=== PATIENT | female | born 1990 | race American Indian/Alaskan Native ===

== ENCOUNTER 2022-05-24 17:36 | Inpatient (IN) | payer OTHER ==
[~2022-05-24] VITALS: Ht 160 cm; Wt 104.8 kg
[2022-05-24] MEDS ORDERED: LIDOCAINE HCL 1% 20ML VIAL (Pyxis) INJ INFIL NR (18:45)
[2022-05-24] MEDS ORDERED: BUTORPHANOL TARTRATE 2 MG/ML VIAL IV PRN (18:45)
[2022-05-24] MEDS ORDERED: RHO(D) IMMUNE GLOBULIN 300 MCG/SYR IM NR (18:45)
[2022-05-24 18:59] LABS: BASOPHILS % 0.2 % (0.0-2.0); EOSINOPHILS % 0.1 % (0.0-5.0); HEMATOCRIT. 39.1 % (36.0-48.0); LYMPHOCYTES % 13.2 % (20.0-50.0); MEAN CORPUSCULAR HEMOGLOBIN 28.7 pg (28.0-32.0); MEAN CORPUSCULAR VOLUME 86.3 fL (81.0-99.0); MEAN PLATELET VOLUME 10.6 fl (7.4-10.4); MONOCYTES % 4.5 % (2.0-8.0); PLATELET 159 x1000/uL (130-400); RED BLOOD CELL COUNT 4.54 mill/uL (4.2-5.4); RED CELL DISTRIBUTION WIDTH 14.3 % (11.6-14.6)
[2022-05-24 19:00] LABS: CLARITY URINE TURBID (CLEAR); COLOR URINE YELLOW (YELLOW); KETONES URINE NEGATIVE (NEGATIVE); LEUKOCYTE ESTERASE URINE 3+ (NEGATIVE); NITRITE URINE NEGATIVE (NEGATIVE); OCCULT BLOOD URINE NEGATIVE (NEGATIVE); PROTEIN URINE 2+ (NEGATIVE); SPECIFIC GRAVITY URINE 1.015 (1.005-1.030); UROBILINOGEN URINE 0.2 E.U./dL (0.2-1.0)
[2022-05-24] MEDS ORDERED: PENICILLIN G POTASSIUM 5 MMU in DEXT 5% WATER 100 ML IV SCH (19:00)
[2022-05-24 19:06] LABS: CHLORIDE 103 mEq/L (98-107)
[2022-05-24 19:11] LABS: *AMPHETAMINES SCREEN URINE NEGATIVE (NEGATIVE); *BARBITURATES SCREEN URINE NEGATIVE (NEGATIVE); *BENZODIAZEPINES SCREEN URINE NEGATIVE (NEGATIVE); *COCAINE SCREEN URINE NEGATIVE (NEGATIVE); CANNABINOID URINE SCREEN NEGATIVE (NEGATIVE); METHADONE URINE SCREEN NEGATIVE (NEGATIVE); OPIATES URINE SCREEN NEGATIVE (NEGATIVE); PHENCYCLIDINE URINE SCREEN NEGATIVE (NEGATIVE)
[2022-05-24] MEDS: LACTATED RINGERS 1,000 ML IV SCH ×2 (19:29→22:36)
[2022-05-24 19:59] LABS: D-DIMER 0.99 mg/L FEU (<0.50); PARTIAL THROMBOPLASTIN TIME 28.4 sec (23.4-31.0); PROTHROMBIN TIME 10.3 sec (9.6-11.0)
[2022-05-24] MEDS ORDERED: POTASSIUM CHLORIDE 20MEQ TABLET SR PO NR (20:00)
[2022-05-24] MEDS: LABETALOL HCL 200MG TABLET PO SCH (20:12)
[2022-05-24 20:35] LABS: HEPATITIS B SURFACE ANTIGEN NEGATIVE
[2022-05-24] MEDS ORDERED: DEXTROSE 50% WATER 50ML SYRINGE IV PRN (23:00)
[2022-05-24] MEDS ORDERED: PENICILLIN G POTASSIUM 2.5 MMU in DEXTROSE 5% WATER 50 ML IV SCH (23:00)
[2022-05-25] MEDS ORDERED: PREN1TAB78 PO (07:11)
[2022-05-25] MEDS ORDERED: NIFE-32 PO (07:11)
[2022-05-25] MEDS ORDERED: MV-M1TAB19 PO (07:11)
[2022-05-25] MEDS ORDERED: [UNRECOGNIZED DRUG - CODE] PO (07:11)
[2022-05-25] MEDS: LACTATED RINGERS 1,000 ML IV SCH (07:41)
[2022-05-25] MEDS: LABETALOL HCL 200MG TABLET PO SCH (07:44)
[2022-05-25] MEDS ORDERED: LACTATED RINGERS IV SCH (08:00)
[2022-05-25] MEDS ORDERED: KCL 20MEQ/100ML PREMIX 100 ML IV NR (08:00)
[2022-05-25] MEDS ORDERED: POTASSIUM ACETATE IV SCH (08:00)
[2022-05-25] MEDS ORDERED: POTASSIUM CHLORIDE INJ 20 MEQ in LACTATED RINGERS 1,000 ML IV SCH (09:00)
[2022-05-25] MEDS: LABETALOL HCL 100MG TABLET PO NR ×2 (18:10→21:20)
[2022-05-25] MEDS ORDERED: DEXT 5%/LR + PITOCIN 20UNITS/L 1,000 ML IV SCH (23:45)
[2022-05-26] MEDS: LACTATED RINGERS 1,000 ML IV SCH ×2 (00:24→10:40)
[2022-05-26] MEDS: OXYTOCIN 30 UNITS/500ML NS PMX 500 ML IV SCH ×2 (00:27→13:42)
[2022-05-26] MEDS ORDERED: LABETALOL HCL 5MG/ML VIAL 20ML IV PRN ×3 (01:00)
[2022-05-26] MEDS ORDERED: HYDRALAZINE 20MG/ML VIAL IV PRN (01:00)
[2022-05-26 01:30] LABS: BASOPHILS % 0.7 % (0.0-2.0); EOSINOPHILS % 1.2 % (0.0-5.0); HEMATOCRIT. 35.8 % (36.0-48.0); HEMOGLOBIN. 12.1 g/dL (12.0-16.0); LYMPHOCYTES % 19.7 % (20.0-50.0); MEAN CORPUSCULAR HEMOGLOBIN 28.8 pg (28.0-32.0); MEAN CORPUSCULAR VOLUME 85.3 fL (81.0-99.0); MEAN PLATELET VOLUME 10.9 fl (7.4-10.4); MONOCYTES % 6.5 % (2.0-8.0); NEUTROPHILS % 71.9 % (40.0-76.0); PLATELET 120 x1000/uL (130-400); RED CELL DISTRIBUTION WIDTH 14.3 % (11.6-14.6)
[2022-05-26 01:38] LABS: CHLORIDE 106 mEq/L (98-107)
[2022-05-26] MEDS ORDERED: ROPIVACAINE HCL/PF EPIDURAL 200 ML EPI ONE (02:44)
[2022-05-26] MEDS ORDERED: ROPIVACAINE HCL/PF EPIDURAL 200 ML EPI SCH (02:45)
[2022-05-26] MEDS: LABETALOL HCL 200MG TABLET PO SCH ×3 (08:07→21:18)
[2022-05-26] MEDS ORDERED: LIDOCAINE HCL 1% 20ML VIAL (Pyxis) INJ INFIL NR (10:15)
[2022-05-26] MEDS ORDERED: BISACODYL 10MG SUPP PR PRN (14:15)
[2022-05-26] MEDS ORDERED: ACETAMINOPHEN WITH CODEINE 300/30MG TABLET PO PRN (14:15)
[2022-05-26] MEDS ORDERED: BENZOCAINE/LANOLIN/ALOE VERA SPRAY TOP PRN (14:15)
[2022-05-26] MEDS ORDERED: HEMORRHOIDAL SUPP PR PRN (14:15)
[2022-05-26] MEDS ORDERED: LANOLIN OINT 7GM TUBE TOP PRN (14:15)
[2022-05-26] MEDS ORDERED: DIPHENHYDRAMINE 25MG CAPSULE PO PRN (14:15)
[2022-05-26] MEDS ORDERED: RHO(D) IMMUNE GLOBULIN 300 MCG/SYR IM PRN (14:15)
[2022-05-26] MEDS ORDERED: IBUPROFEN 400MG TABLET PO PRN (14:15)
[2022-05-26] MEDS ORDERED: GLYCERIN/WITCH HAZEL LEAF MEDICATED PAD TOP PRN (14:15)
[2022-05-26] MEDS ORDERED: OXYTOCIN 30 UNITS/500ML NS PMX 500 ML IV SCH (14:15)
[2022-05-26 15:10] VITALS: BP 145/90
[2022-05-26 18:00] VITALS: BP 137/93
[2022-05-26 20:00] VITALS: BP 137/80
[2022-05-26] MEDS: DOCUSATE SODIUM 100MG CAPSULE PO SCH (21:14)
[2022-05-26] MEDS: SIMETHICONE 80MG TABLET CHEW PO SCH (21:14)
[2022-05-26] MEDS: MAGNESIUM/ALUMINUM HYDROXIDE/SIMETHICONE 30ML UDC PO SCH (21:14)
[2022-05-27 03:30] VITALS: BP 113/69
[2022-05-27 05:28] LABS: CHLORIDE 108 mEq/L (98-107)
[2022-05-27] MEDS: LABETALOL HCL 200MG TABLET PO SCH ×3 (05:50→23:49)
[2022-05-27 06:26] LABS: BASOPHILS % 0.1 % (0.0-2.0); EOSINOPHILS % 0.2 % (0.0-5.0); HEMATOCRIT. 25.4 % (36.0-48.0); HEMOGLOBIN. 8.4 g/dL (12.0-16.0); MEAN CORPUSCULAR VOLUME 87.2 fL (81.0-99.0); MEAN PLATELET VOLUME 10.5 fl (7.4-10.4); MONOCYTES % 6.9 % (2.0-8.0); NEUTROPHILS % 80.8 % (40.0-76.0); PLATELET 139 x1000/uL (130-400); RED BLOOD CELL COUNT 2.91 mill/uL (4.2-5.4); RED CELL DISTRIBUTION WIDTH 13.8 % (11.6-14.6)
[2022-05-27 08:00] VITALS: BP 124/76
[2022-05-27] MEDS: MAGNESIUM/ALUMINUM HYDROXIDE/SIMETHICONE 30ML UDC PO SCH ×3 (08:36→20:44)
[2022-05-27] MEDS: PRENATAL VIT/FE FUMARATE/FA TABLET PO SCH (08:36)
[2022-05-27] MEDS: FERROUS SULFATE 325MG TABLET PO SCH ×3 (08:37→20:52)
[2022-05-27] MEDS: SIMETHICONE 80MG TABLET CHEW PO SCH ×3 (08:37→20:43)
[2022-05-27] MEDS: BLOOD SUGAR DIAGNOSTIC STRIP TEST SCH ×3 (12:00→20:55)
[2022-05-27] MEDS: INSULIN LISPRO 100 UNITS/ML SUBCUT SCH ×2 (12:30→17:30)
[2022-05-27 16:00] VITALS: BP 150/88
[2022-05-27] MEDS ORDERED: NALOXONE HCL 0.4MG/ML VIAL IV PRN (16:15)
[2022-05-27 19:30] VITALS: BP 137/79
[2022-05-27] MEDS: DOCUSATE SODIUM 100MG CAPSULE PO SCH (20:43)
[2022-05-27 22:00] VITALS: BP 152/90
[2022-05-28] MEDS: LABETALOL HCL 200MG TABLET PO SCH ×3 (00:30→16:45)
[2022-05-28 03:45] VITALS: BP 135/85
[2022-05-28 06:26] LABS: BASOPHILS % 0.2 % (0.0-2.0); EOSINOPHILS % 0.4 % (0.0-5.0); HEMOGLOBIN. 7.9 g/dL (12.0-16.0); LYMPHOCYTES % 12.7 % (20.0-50.0); MEAN CORPUSCULAR VOLUME 87.8 fL (81.0-99.0); MEAN PLATELET VOLUME 10.3 fl (7.4-10.4); MONOCYTES % 7.6 % (2.0-8.0); NEUTROPHILS % 79.1 % (40.0-76.0); PLATELET 149 x1000/uL (130-400); RED BLOOD CELL COUNT 2.74 mill/uL (4.2-5.4); RED CELL DISTRIBUTION WIDTH 14.2 % (11.6-14.6)
[2022-05-28] MEDS ORDERED: IBUP-2030 PO (07:40)
[2022-05-28] MEDS ORDERED: FERR-63 PO (07:40)
[2022-05-28] MEDS ORDERED: LABE200T9 PO (07:40)
[2022-05-28 08:00] VITALS: BP 155/100
[2022-05-28] MEDS: MAGNESIUM/ALUMINUM HYDROXIDE/SIMETHICONE 30ML UDC PO SCH ×3 (08:32→20:14)
[2022-05-28] MEDS: SIMETHICONE 80MG TABLET CHEW PO SCH ×3 (08:32→20:15)
[2022-05-28] MEDS: PRENATAL VIT/FE FUMARATE/FA TABLET PO SCH (08:32)
[2022-05-28] MEDS: FERROUS SULFATE 325MG TABLET PO SCH ×2 (08:32→16:45)
[2022-05-28 09:55] LABS: CHLORIDE 107 mEq/L (98-107)
[2022-05-28 10:20] VITALS: BP 151/99
[2022-05-28 14:00] VITALS: BP 145/82
[2022-05-28 16:00] VITALS: BP 152/91
[2022-05-28] MEDS: BLOOD SUGAR DIAGNOSTIC STRIP TEST SCH (17:00)
[2022-05-28] MEDS: INSULIN LISPRO 100 UNITS/ML SUBCUT SCH (17:06)
[2022-05-28 19:30] VITALS: BP 150/91
[2022-05-28] MEDS: NIFEDIPINE XL 30MG TAB PO SCH (20:15)
[2022-05-28] MEDS: DOCUSATE SODIUM 100MG CAPSULE PO SCH (20:23)
[2022-05-29] VITALS: BP 150/90
[2022-05-29 04:00] VITALS: BP 139/88
[2022-05-29] MEDS ORDERED: NIFE-33 PO (05:46)
[2022-05-29 08:00] VITALS: BP 148/92
[2022-05-29] MEDS: SIMETHICONE 80MG TABLET CHEW PO SCH (08:00)
[2022-05-29] MEDS: NIFEDIPINE XL 30MG TAB PO SCH (09:15)
[2022-05-29] MEDS: PRENATAL VIT/FE FUMARATE/FA TABLET PO SCH (09:16)
[2022-05-29] MEDS: LABETALOL HCL 200MG TABLET PO SCH ×3 (09:16→21:33)
[2022-05-29] MEDS: MAGNESIUM/ALUMINUM HYDROXIDE/SIMETHICONE 30ML UDC PO SCH ×2 (09:16→12:30)
[2022-05-29] MEDS: FERROUS SULFATE 325MG TABLET PO SCH ×3 (09:16→17:14)
[2022-05-29 12:00] VITALS: BP 143/93
[2022-05-29] MEDS: IBUPROFEN 800MG TABLET PO PRN (13:06)
[2022-05-29 16:00] VITALS: BP 141/92
[2022-05-29] MEDS: DOCUSATE SODIUM 100MG CAPSULE PO SCH (21:00)
[2022-05-29 21:46] VITALS: BP 136/94
[2022-05-30] MEDS: IBUPROFEN 800MG TABLET PO PRN ×2 (05:30→22:45)
[2022-05-30 06:18] VITALS: BP 137/82
[2022-05-30 09:00] VITALS: BP 139/90
[2022-05-30] MEDS: NIFEDIPINE XL 30MG TAB PO SCH (10:01)
[2022-05-30 16:00] VITALS: BP 160/102
[2022-05-30] MEDS: LABETALOL HCL 200MG TABLET PO SCH (16:22)
[2022-05-30 22:00] VITALS: BP 146/102
[2022-05-30] MEDS: MAGNESIUM/ALUMINUM HYDROXIDE/SIMETHICONE 30ML UDC PO SCH (22:45)
[2022-05-30] MEDS: SIMETHICONE 80MG TABLET CHEW PO SCH (22:46)
[2022-05-30] MEDS: DOCUSATE SODIUM 100MG CAPSULE PO SCH (22:46)
[2022-05-31] MEDS: LABETALOL HCL 200MG TABLET PO SCH ×2 (01:04→11:06)
[2022-05-31 05:40] VITALS: BP 124/88
[2022-05-31 09:30] VITALS: BP 165/96
[2022-05-31] MEDS: IBUPROFEN 800MG TABLET PO PRN (10:00)
[2022-05-31] MEDS: PRENATAL VIT/FE FUMARATE/FA TABLET PO SCH (10:00)
[2022-05-31] MEDS: NIFEDIPINE XL 30MG TAB PO SCH (10:01)
== END 2022-05-31 11:30 | disposition home or self-care (01) | DRG 542 ==
LOC: 8 EST LDRP 17:36 → OBSVTOIN 17:36 → 8EST 05-26 14:49
PROVIDERS: ADMIT Obstetrics & Gynecology; ATTEND Obstetrics & Gynecology
PROC: 0UCC7ZZ Extirpation of Matter from Cervix, Via Natural or Artificial Opening (ICD-10-PCS; 2022-05-25)
PROC: 10E0XZZ Delivery of Products of Conception, External Approach (ICD-10-PCS; principal; 2022-05-26)
PROC: 0KQM0ZZ Repair Perineum Muscle, Open Approach (ICD-10-PCS; 2022-05-26)
PROC: 3E0R3BZ Introduction of Anesthetic Agent into Spinal Canal, Percutaneous Approach (ICD-10-PCS; 2022-05-26)
PROC: 00HU33Z Insertion of Infusion Device into Spinal Canal, Percutaneous Approach (ICD-10-PCS; 2022-05-26)
DX: O13.4 Gestational [pregnancy-induced] hypertension without significant proteinuria, complicating childbirth (principal); Z37.0 Single live birth; O14.94 Unspecified pre-eclampsia, complicating childbirth; O24.92 Unspecified diabetes mellitus in childbirth; O34.33 Maternal care for cervical incompetence, third trimester; O60.14X0 Preterm labor third trimester with preterm delivery third trimester, not applicable or unspecified; O69.81X0 Labor and delivery complicated by cord around neck, without compression, not applicable or unspecified; O70.1 Second degree perineal laceration during delivery; O77.0 Labor and delivery complicated by meconium in amniotic fluid; O99.214 Obesity complicating childbirth; O99.02 Anemia complicating childbirth; Z3A.36 36 weeks gestation of pregnancy; O99.334 Smoking (tobacco) complicating childbirth; Z20.822 Contact with and (suspected) exposure to COVID-19
CPT/HCPCS: 36415; 71045; 76805; 76818; 80053; 80305; 81003; 82962; 84550; 85025; 85379; 85384; 86592; 86762; 86850; 86900; 87340; 87426; 99281; J2540; J2795; J3480; J3490; J7060; J7120; A4315; J2590